=== PATIENT | female | born 1960 | race Caucasian/White ===

== ENCOUNTER → 2021-12-28 | Outpatient (CLI) | payer BC, OTHER ==
[~2021-12-28] MED LIST: ALLO100T PO; BUPR15TA PO; FURO40TA2 PO; HYDR-3490 PO; SYNT100T PO; SYNT25TA PO; ZYRTTAB8 PO; black cherry PO
== END ==
LOC: M LABSMTC 11:18
PROVIDERS: ATTEND Anesthesiology
DX: Z01.812 Encounter for preprocedural laboratory examination (principal); Z11.52 Encounter for screening for COVID-19

== ENCOUNTER 2021-12-31 10:43 | Day surgery (SDC) | payer BC ==
[~2021-12-31] VITALS: Ht 154.9 cm; Wt 63.9 kg
[~2021-12-31 10:43] MED LIST changes: +ceFAZolin SOD 2 GM in IV 1 EA IV ONE
[2021-12-31] MEDS ORDERED: fentaNYL 250 MCG/5 ML INJECTION As Ordered ONE (13:06)
[2021-12-31] MEDS ORDERED: dexameTHASONE 4 MG/ML 1ML VIAL (J1100 PER 1MG) As Ordered ONE (13:07)
[2021-12-31] MEDS ORDERED: MIDAZOLAM INJ 2MG/2ML VIAL (J2250 PER 1MG) As Ordered ONE (13:07)
[2021-12-31] MEDS ORDERED: ONDANSETRON 4MG 2ML VIAL As Ordered ONE (13:07)
[2021-12-31] MEDS ORDERED: propofoL 200 MG/20 ML VIAL As Ordered ONE (13:07)
[2021-12-31] MEDS ORDERED: KETOROLAC 60MG 2ML VIAL As Ordered ONE (13:07)
[2021-12-31] MEDS ORDERED: LIDOCAINE 2% 100MG/5ML SDV (FOR ANES.) As Ordered ONE (13:07)
[2021-12-31] MEDS ORDERED: LIDOCAINE 1% SDV 30ML VIAL As Ordered ONE (14:09)
[2021-12-31] MEDS ORDERED: BUPIVACAINE HCL 0.25% 10ML VIAL As Ordered ONE (14:09)
[2021-12-31] MEDS ORDERED: BUPIVACAINE HCL 0.5% 30ML VIAL As Ordered ONE (14:10)
[2021-12-31] MEDS ORDERED: ACETAMINOPHEN 1000MG 100ML IV BTL (OFIRMEV) (J0131 PER 10MG) As Ordered ONE (14:54)
[2021-12-31] MEDS ORDERED: METOCLOPRAMIDE INJ 10MG/2ML VIAL (J2765 PER 1) As Ordered ONE (14:55)
[2021-12-31] MEDS ORDERED: PHENYLephrine 500MCG 5ML (100MCG/ML) SYRINGE As Ordered ONE (14:58)
[2021-12-31] MEDS ORDERED: oxyCODONE 5MG TAB PO PRN (16:30)
[2021-12-31] MEDS ORDERED: ONDANSETRON 4MG 2ML VIAL IV PRN (16:30)
[2021-12-31] MEDS ORDERED: LR 1,000 ML IV SCH (16:30)
[2021-12-31] MEDS ORDERED: fentaNYL 100 MCG/2 ML INJECTION IV PRN (16:30)
[2021-12-31 17:35] VITALS: BP 109/58
== END 2021-12-31 17:39 | disposition home or self-care (01) ==
LOC: M SDC 10:43
PROVIDERS: ATTEND Podiatrist Foot & Ankle Surgery
DX: M20.11 Hallux valgus (acquired), right foot (principal); M20.41 Other hammer toe(s) (acquired), right foot; M10.072 Idiopathic gout, left ankle and foot; N18.32 Chronic kidney disease, stage 3b; E03.9 Hypothyroidism, unspecified; F32.A Depression, unspecified; M17.10 Unilateral primary osteoarthritis, unspecified knee; Z87.440 Personal history of urinary (tract) infections; Z79.899 Other long term (current) drug therapy; Z79.890 Hormone replacement therapy
CPT/HCPCS: 28285; 28297; 28312; 88300; C1713; J0131; J0690; J1100; J1885; J2250; J2370; J2405; J2765; J3010

== ENCOUNTER 2022-12-16 08:28 | Day surgery (SDC) | payer BC ==
[~2022-12-16] VITALS: Ht 154.9 cm; Wt 68.2 kg
[2022-12-16] MEDS ORDERED: LR 1,000 ML IV SCH (09:15)
[2022-12-16] MEDS ORDERED: LIDOCAINE 1% SDV 30ML VIAL As Ordered ONE (09:27)
[2022-12-16] MEDS ORDERED: propofoL 200 MG/20 ML VIAL As Ordered ONE (09:29)
[2022-12-16] MEDS ORDERED: fentaNYL 100 MCG/2 ML INJECTION As Ordered ONE (09:29)
[2022-12-16] MEDS ORDERED: ONDANSETRON 4MG 2ML VIAL As Ordered ONE (09:29)
[2022-12-16] MEDS ORDERED: LIDOCAINE 2% 100MG/5ML SDV (FOR ANES.) As Ordered ONE (09:29)
[2022-12-16] MEDS ORDERED: MIDAZOLAM INJ 2MG/2ML VIAL As Ordered ONE (09:29)
[2022-12-16] MEDS ORDERED: ePHEDrine SULFATE 25 MG/5 ML(5MG/ML) SYRINGE As Ordered ONE (10:10)
[2022-12-16] MEDS ORDERED: KETOROLAC 60MG 2ML VIAL As Ordered ONE (10:25)
[2022-12-16] MEDS ORDERED: ACETAMINOPHEN 1000MG 100ML IV BAG As Ordered ONE (10:25)
[2022-12-16] MEDS ORDERED: oxyCODONE 5MG TAB PO PRN (11:15)
[2022-12-16] MEDS ORDERED: ONDANSETRON 4MG 2ML VIAL IV PRN (11:15)
[2022-12-16] MEDS ORDERED: METOCLOPRAMIDE INJ 10MG/2ML VIAL IV PRN (11:15)
[2022-12-16 12:02] VITALS: BP 104/69; TEMP 97.4; O2SAT 95
== END 2022-12-16 12:28 | disposition home or self-care (01) ==
LOC: M SDC 08:28
PROVIDERS: ATTEND Podiatrist Foot & Ankle Surgery
DX: M21.612 Bunion of left foot (principal); M20.12 Hallux valgus (acquired), left foot; E03.9 Hypothyroidism, unspecified; N18.9 Chronic kidney disease, unspecified; F32.A Depression, unspecified; Z79.899 Other long term (current) drug therapy
CPT/HCPCS: 28299; 76000; 88300; C1713; J0131; J0665; J0690; J1100; J1885; J2250; J2405; J3010

== ENCOUNTER 2023-08-11 06:07 | Day surgery (SDC) | payer BC ==
[~2023-08-11] VITALS: Ht 154.9 cm; Wt 69.7 kg
[~2023-08-11 06:07] MED LIST changes: +CRAN450T4 PO; -ceFAZolin SOD 2 GM in IV 1 EA IV ONE
[2023-08-11] MEDS ORDERED: LR 1,000 ML IV SCH ×2 (06:35→09:00)
[2023-08-11] MEDS ORDERED: MIDAZOLAM INJ 2MG/2ML VIAL As Ordered ONE (07:13)
[2023-08-11] MEDS ORDERED: fentaNYL 100 MCG/2 ML INJECTION As Ordered ONE (07:16)
[2023-08-11] MEDS: LIDOCAINE 1% SDV 30ML VIAL As Ordered ONE (07:42)
[2023-08-11] MEDS ORDERED: propofoL 200 MG/20 ML VIAL As Ordered ONE (07:44)
[2023-08-11] MEDS: ceFAZolin SOD 2 GM in IV 1 EA IV ONE (07:45)
[2023-08-11] MEDS ORDERED: MORPHINE 2 MG/ML 1ML VIAL IV PRN (09:00)
[2023-08-11] MEDS ORDERED: fentaNYL 100 MCG/2 ML INJECTION IV PRN (09:00)
[2023-08-11] MEDS ORDERED: ONDANSETRON 4MG 2ML VIAL IV PRN (09:00)
[2023-08-11] MEDS: oxyCODONE 5MG TAB PO PRN (09:16)
[2023-08-11 09:30] VITALS: BP 126/82; TEMP 97.1; O2SAT 100
== END 2023-08-11 09:45 | disposition home or self-care (01) ==
LOC: M SDC 06:07
PROVIDERS: ATTEND Podiatrist Foot & Ankle Surgery
DX: T84.84XA Pain due to internal orthopedic prosthetic devices, implants and grafts, initial encounter (principal); Y79.2 Prosthetic and other implants, materials and accessory orthopedic devices associated with adverse incidents; E03.9 Hypothyroidism, unspecified; F32.A Depression, unspecified; N18.9 Chronic kidney disease, unspecified; J30.1 Allergic rhinitis due to pollen; Z87.440 Personal history of urinary (tract) infections; Z87.891 Personal history of nicotine dependence; Z79.899 Other long term (current) drug therapy; Z79.890 Hormone replacement therapy
CPT/HCPCS: 20680; 28740; 76000; C1713; J0665; J0690; J2250; J3010